=== PATIENT | female | born 1945 | race Caucasian/White ===

== ENCOUNTER 2019-07-13 21:26 | Emergency (ER) | payer OTHER ==
--- OUTSIDE RECORDS SUMMARY | 2019-07-13 21:29 | XMS REPORT ---
:1945 [facility] Organization [facility] Address [address] [place] [address] [address]. [address] [place] [address] Care Team Providers Name Role Phone JESSICA NELSON Unavailable Unavailable Problems This patient has no known problems. Allergies, Adverse Reactions, Alerts This patient has no known allergies or adverse reactions. Medications This patient has no known medications. Results Test Description Test Time Test Comments Text Results Atomic Results Result Comments BASIC METABOLIC PANEL 2019-06-03 06:34:00 Test Item Value Reference Range Comments SODIUM (BEAKER) (test 141 meq/L 136-145 kftr=273) POTASSIUM (BEAKER) (test 3.6 meq/L 3.5-5.1 gksl=362) CHLORIDE (BEAKER) (test 110 meq/L 98-107 vjqh=148) CO2 (BEAKER) (test vkfg=603) 26 meq/L 22-29 BLOOD UREA NITROGEN (BEAKER) 15 mg/dL 7-21 (test hjwy=224) CREATININE (BEAKER) (test 0.63 mg/dL 0.57-1.25 vdql=247) GLUCOSE RANDOM (BEAKER) 85 mg/dL 70-105 (test lduo=987) CALCIUM (BEAKER) (test 8.8 mg/dL 8.4-10.2 wsnm=038) EGFR (BEAKER) (test 93 mL/min/1.73 sq m ESTIMATED GFR IS NOT sgwy=3120) ACCURATE CREATININE CLEARANCE IN PREDICTING GLOMERULAR FILTRATION RATE. ESTIMATED GFR IS NOT APPLICABLE FOR DIALYSIS PATIENTS. CBC (HEMOGRAM ONLY)2019-06-03 06:10:00 Test Item Value Reference Range Comments WHITE BLOOD CELL COUNT (BEAKER) (test oujf=814) 4.2 K/ L 3.5-10.5 RED BLOOD CELL COUNT (BEAKER) (test oend=462) 3.81 M/ L 3.93-5.22 HEMOGLOBIN (BEAKER) (test urwv=036) 12.1 GM/DL 11.2-15.7 HEMATOCRIT (BEAKER) (test zlpd=081) 36.7 % 34.1-44.9 MEAN CORPUSCULAR VOLUME (BEAKER) (test bqxg=002) 96.3 fL 79.4-94.8 MEAN CORPUSCULAR HEMOGLOBIN (BEAKER) (test 31.8 pg 25.6-32.2 joap=107) MEAN CORPUSCULAR HEMOGLOBIN CONC (BEAKER) (test 33.0 GM/DL 32.2-35.5 kbpq=933) RED CELL DISTRIBUTION WIDTH (BEAKER) (test 12.8 % 11.7-14.4 mjwg=237) PLATELET COUNT (BEAKER) (test hafj=379) 204 K/CU MM 150-450 MEAN PLATELET VOLUME (BEAKER) (test cone=954) 10.4 fL 9.4-12.3 NUCLEATED RED BLOOD CELLS (BEAKER) (test 0 /100 WBC 0-0 gkll=881) [id number] 09:49:00 Test Item Value Reference Range Comments ACTIVATED CLOTTING TIME 346 sec Reference Range: 74-137 (BEAKER) (test pnmg=159) seconds, Baseline/TESTED AT [address] [address] [id number] 09:37:00 Test Item Value Reference Range Comments ACTIVATED CLOTTING TIME 197 sec Reference Range: 74-137 (BEAKER) (test kaae=029) seconds, Baseline/TESTED AT [address] [address] BASIC METABOLIC [id number] 07:54:00 Test Item Value Reference Range Comments SODIUM (BEAKER) (test 141 meq/L 136-145 ewuk=039) POTASSIUM (BEAKER) (test 3.9 meq/L 3.5-5.1 Specimen slightly cizc=756) hemolyzed CHLORIDE (BEAKER) (test 106 meq/L 98-107 yqcf=536) CO2 (BEAKER) (test 27 meq/L 22-29 drdm=551) BLOOD UREA NITROGEN 12 mg/dL 7-21 (BEAKER) (test kczd=104) CREATININE (BEAKER) (test 0.76 mg/dL 0.57-1.25 Specimen slightly hfxz=562) hemolyzed GLUCOSE RANDOM (BEAKER) 80 mg/dL 70-105 (test lpdy=981) CALCIUM (BEAKER) (test 9.5 mg/dL 8.4-10.2 ifxh=669) EGFR (BEAKER) (test 75 mL/min/1.73 sq m ESTIMATED GFR IS NOT xqka=8343) ACCURATE CREATININE CLEARANCE IN PREDICTING GLOMERULAR FILTRATION RATE. ESTIMATED GFR IS NOT APPLICABLE FOR DIALYSIS PATIENTS. CBC (HEMOGRAM ONLY)2019-06-02 07:36:00 Test Item Value Reference Range Comments WHITE BLOOD CELL COUNT (BEAKER) (test ptnu=804) 4.2 K/ L 3.5-10.5 RED BLOOD CELL COUNT (BEAKER) (test ifyu=205) 3.92 M/ L 3.93-5.22 HEMOGLOBIN (BEAKER) (test nqza=029) 12.9 GM/DL 11.2-15.7 HEMATOCRIT (BEAKER) (test umom=199) 37.5 % 34.1-44.9 MEAN CORPUSCULAR VOLUME (BEAKER) (test gqqf=420) 95.7 fL 79.4-94.8 MEAN CORPUSCULAR HEMOGLOBIN (BEAKER) (test 32.9 pg 25.6-32.2 larl=413) MEAN CORPUSCULAR HEMOGLOBIN CONC (BEAKER) (test 34.4 GM/DL 32.2-35.5 rebi=508) RED CELL DISTRIBUTION WIDTH (BEAKER) (test 12.8 % 11.7-14.4 jwdn=368) PLATELET COUNT (BEAKER) (test yxwx=103) 219 K/CU MM 150-450 MEAN PLATELET VOLUME (BEAKER) (test hrkm=150) 10.3 fL 9.4-12.3 NUCLEATED RED BLOOD CELLS (BEAKER) (test 0 /100 WBC 0-0 cyzq=975)
[2019-07-13] MEDS ORDERED: ACETAMINOPHEN 500 MG TAB ONE (22:40)
--- NOTE | 2019-07-14 00:21 | ER ---
Nurse's Notes [facility] Name: Tiff Elias Age: 73 yrs Sex: Female : 1945 Arrival Date: 07/13/2019 Time: 21:32 Bed 19 Private MD: Diagnosis: Contusion of unspecified part of head Presentation: 07/13 21:42 Presenting complaint: Patient states: Tripped outside and hit face, abrasion noted to tl2 bridge of nose and swelling to bottom lip. Pt recently had stent placement procedure on 06-02-19 and was prescribed multiple blood thinners. Bleeding controlled at this time. Pt denies LOC. Care prior to arrival: None. Mechanism of Injury: Fall from standing position. Trauma event details: Injury occurred in the [facility]. 21:42 Acuity: UGO 3 tl2 21:42 Method Of Arrival: Wheelchair tl2 21:44 Transition of care: patient was not received from another setting of care. Onset of tl2 symptoms was July 13, 2019 at 21:20. Risk Assessment: Do you want to hurt yourself or someone else? Patient reports no desire to harm self or others. Initial Sepsis Screen: Does the patient meet any 2 criteria? No. Patient's initial sepsis screen is negative. Does the patient have a suspected source of infection? No. Patient's initial sepsis screen is negative. Trauma Activation: Alert Physician: ED Physician; Name: tono; Notified At: 21:42; Arrived At: 21:42 Physician: General Surgeon; Name: ; Notified At: 21:42; Arrived At: Physician: Radiology; Name: ; Notified At: 21:42; Arrived At: 21:42 Physician: Respiratory; Name: ; Notified At: 21:42; Arrived At: Physician: Lab; Name: ; Notified At: 21:42; Arrived At: Historical: - Allergies: 21:47 No Known Allergies; tl2 - Home Meds: 21:47 amlodipine 10 mg tab 1 tab once daily [Active]; hydrochlorothiazide 12.5 mg Oral cap 1 tl2 cap once daily [Active]; levothyroxine 75 mcg tab 1 tab once daily [Active]; aspirin 81 mg Oral chew once daily [Active]; irbesartan 150 mg oral tab 1 tab twice daily [Active]; prasugrel oral 10 mg oral 1 tab once daily [Active]; atorvastatin 40 mg oral tab 1 tab once daily [Active]; lamotrigine 200 mg oral tab 1 tab 2 times per day [Active]; - PMHx: 21:47 Arthritis; Hypertension; Hypothyroidism; TIA; tl2 - PSHx: 21:47 stent placement 06-02-19; tl2 - Immunization history: Last tetanus immunization: - up to date. - Social history:: Smoking status: Patient/guardian denies using tobacco. - Ebola Screening: : No symptoms or risks identified at this time. Screenin:49 Abuse screen: Denies threats or abuse. Nutritional screening: No deficits noted. tl2 Tuberculosis screening: No symptoms or risk factors identified. Fall Risk Fall in past 12 months (25 points). Primary Survey: 21:47 NO uncontrolled hemorrhage observed. A: The patient is alert. Airway: patent, No cc3 supplemental oxygen in use on arrival. Oral cavity: clear, gag reflex present, Trachea midline. Breathing/Chest: Respiratory pattern: regular, Respiratory effort: spontaneous, unlabored, Breath sounds: clear, bilaterally. Chest inspection: symmetrical rise and fall of the chest. Circulation: Heart tones present. Skin color: pink, Skin temperature: warm, dry. Disability Alert. Exposure/Environment: All clothing and personal items were removed. Forensic evidence collection is not deemed to be indicated at this time. Items placed in patient belonging bag. There is no evidence of uncontrolled external bleeding. Obvious injury(ies) are noted at this time: abrasion to nasal bridge A warming method has been applied: A warm blanket has been provided to the patient. 21:50 Reassessment Airway Airway Patent Breathing/Chest Respiratory pattern Regular cc3 Respiratory effort Spontaneous Unlabored Breath sounds Clear Chest inspection Symmetrical Circulation Heart tones Present Color [place] Temperature Warm Dry Disability Alert. Secondary Survey: 21:47 HEENT: Head No injury/deformity Face Other abrasion to nasal bridge and chin, swollen cc3 lips Eyes: No injury or deformity noted. to bilateral eyes. Ears: clear bilaterally. Nose: clear to bilateral nares. abrasion to nasal bridge. Throat: is clear with gag reflex present. Gastrointestinal: Abdomen is soft, non-distended, Bowel sounds present in all quadrants. Palpation No deficit noted. : No signs and/or symptoms were reported regarding the genitourinary system. Musculoskeletal: Circulation, motion, and sensation intact. Range of motion: intact in all extremities. Injury Description: Abrasion sustained to chin and nose. Assessment: 21:42 General: Appears in no apparent distress. comfortable, Behavior is calm, cooperative, tl2 appropriate for age. Pain: Complains of pain in nose. 21:47 General: Appears in no apparent distress. comfortable, Behavior is calm, cooperative, cc3 appropriate for age. Pain: Complains of pain in chin and nose. Neuro: Level of Consciousness is awake, alert, obeys commands, Oriented to person, place, time, situation, Appropriate for age Science Liaison are equal bilaterally Moves all extremities. Full function Gait is steady, Speech is normal, Facial symmetry appears normal, Pupils are PERRLA, Intact. Cardiovascular: Denies chest pain, Heart tones S1 S2 present Capillary refill < 3 seconds in bilateral fingers Patient's skin is warm and dry. Respiratory: Airway is patent Respiratory effort is even, unlabored, Respiratory pattern is regular, symmetrical, Breath sounds are clear bilaterally. GI: Abdomen is flat, Bowel sounds present X 4 quads. Abd is soft and non tender X 4 quads. : No signs and/or symptoms were reported regarding the genitourinary system. EENT: Ear canal clear on bilaterally Pinna with no deformity noted on bilaterally Sclera/Cornea are clear in bilaterally Nares are clear bilaterally Oral mucosa is moist. Throat with gag reflex present, abrasions to nasal bridge, chin and swollen lips. Derm: Skin is intact, is fragile, is thin, Bruising that is bright red, dark purple, on bilateral forearms - patient said not because of trauma that happened but because she's on blood thinners. Musculoskeletal: Circulation, motion, and sensation intact. Range of motion: intact in all extremities. Injury Description: Abrasion sustained to chin and nasal bridge. 22:25 Reassessment: Patient appears in no apparent distress at this time. Patient and/or cc3 family updated on plan of care and expected duration. Pain level reassessed. Patient is alert, oriented x 3, equal unlabored respirations, skin warm/dry/pink. wound cleaning done. 23:34 Reassessment: Patient appears in no apparent distress at this time. Patient and/or cc3 family updated on plan of care and expected duration. Pain level reassessed. Patient is alert, oriented x 3, equal unlabored respirations, skin warm/dry/pink. 07/14 00:30 Reassessment: Patient appears in no apparent distress at this time. Patient and/or cc3 family updated on plan of care and expected duration. Pain level reassessed. Patient is alert, oriented x 3, equal unlabored respirations, skin warm/dry/pink. Dr. Walton discharged the patient home with prescription given. No IV cannula in situ. Patient left ER vitally stable and ambulatory with her daughter. No valuables left in the patient's room. Patient denies pain at this time. Patient states feeling better. Patient states symptoms have improved. Vital Signs: 07/13 21:47 BP 133 / 70; Pulse 71; Resp 18; Temp 97.7(O); Pulse Ox 99% on R/A; Weight 74.84 kg; tl2 Height 5 ft. 1 in. (154.94 cm); Pain 4/10; 22:30 BP 127 / 66; Pulse 67; Resp 17 S; Pulse Ox 97% on R/A; cc3 23:34 BP 113 / 62; Pulse 65; Resp 16 S; Pulse Ox 100% on R/A; cc3 07/14 00:18 BP 119 / 61; Pulse 68; Resp 15 S; Pulse Ox 97% on R/A; Pain 0/10; cc3 07/13 21:47 Body Mass Index 31.18 (74.84 kg, 154.94 cm) tl2 Gaetano Coma Score: 07/13 21:47 Eye Response: spontaneous(4). Verbal Response: oriented(5). Motor Response: obeys cc3 commands(6). Total: 15. Trauma Score (Adult): 21:47 Eye Response: spontaneous(1); Verbal Response: oriented(1); Motor Response: obeys cc3 commands(2); Systolic BP: > 89 mm Hg(4); Respiratory Rate: 10 to 29 per min(4); Gaetano Score: 15; Trauma Score: 12 ED Course: 21:32 Patient arrived in ED. cf2 21:42 Kunal Walton MD is Attending Physician. tw4 21:43 Triage completed. tl2 21:47 Robyn Alba is Primary Nurse. cc3 21:47 Arm band placed on right wrist. tl2 21:47 Patient maintains SpO2 saturation greater than 95% on room air. Thermoregulation: warm cc3 blanket given to patient. 21:49 Patient has correct armband on for positive identification. Bed in low position. Call tl2 light in reach. Side rails up X2. Adult w/ patient. 22:24 CT Head C Spine In Process Unspecified. EDMS 22:25 CT Facial Bones W/O Con In Process Unspecified. EDMS 07/14 00:30 No provider procedures requiring assistance completed. Patient did not have IV access cc3 during this emergency room visit. Administered Medications: 07/13 22:43 Drug: Tylenol 1000 mg Route: PO; cc3 07/14 00:30 Follow up: Response: No adverse reaction; Pain is decreased cc3 Intake: 00:30 PO: 100ml; Total: 100ml. cc3 00:30 voided 3x cc3 Outcome: 00:20 Discharge ordered by . tw4 00:30 Discharged to home ambulatory, with family. cc3 00:30 Condition: stable 00:30 Discharge instructions given to patient, family, Instructed on discharge instructions, follow up and referral plans. medication usage, Demonstrated understanding of instructions, follow-up care, medications, Prescriptions given X 1. 00:30 Patient's length of stay in the Emergency Department was greater than 2 hours. waited cc3 for diagnostic exam resultsPatient's length of stay extended due to 00:36 Patient left the ED. cc3 Signatures: Dispatcher [facility] Fifi Reinoso RN RN tl2 Kunal Walton MD MD tw4 Robyn Alba cc3 Daniela Salgado cf2 Corrections: (The following items were deleted from the chart) 00:54 07/13 22:25 Reassessment: Patient appears in no apparent distress at this time. Patient cc3 and/or family updated on plan of care and expected duration. Pain level reassessed. Patient is alert, oriented x 3, equal unlabored respirations, skin warm/dry/pink. cc3
--- NOTE | 2019-07-14 00:22 | EDPHYS ---
Physician Documentation [facility] Name: Tiff Elias Age: 73 yrs Sex: Female : 1945 Arrival Date: 07/13/2019 Time: 21:32 Bed 19 Private MD: ED Physician Kunal Walton HPI: 07/13 22:37 This 73 yrs old Female presents to ER via Wheelchair with complaints of Fall tw4 Injury. 22:37 Details of fall: The patient fell from an upright position, while standing. Onset: The tw4 symptoms/episode began/occurred today. Associated injuries: The patient sustained no obvious injury. Severity of symptoms: At their worst the symptoms were moderate, in the emergency department the symptoms are unchanged. The patient has not experienced similar symptoms in the past. Historical: - Allergies: 21:47 No Known Allergies; tl2 - Home Meds: 21:47 amlodipine 10 mg tab 1 tab once daily [Active]; hydrochlorothiazide 12.5 mg Oral cap 1 tl2 cap once daily [Active]; levothyroxine 75 mcg tab 1 tab once daily [Active]; aspirin 81 mg Oral chew once daily [Active]; irbesartan 150 mg oral tab 1 tab twice daily [Active]; prasugrel oral 10 mg oral 1 tab once daily [Active]; atorvastatin 40 mg oral tab 1 tab once daily [Active]; lamotrigine 200 mg oral tab 1 tab 2 times per day [Active]; - PMHx: 21:47 Arthritis; Hypertension; Hypothyroidism; TIA; tl2 - PSHx: 21:47 stent placement 06-02-19; tl2 - Immunization history: Last tetanus immunization: - up to date. - Social history:: Smoking status: Patient/guardian denies using tobacco. - Ebola Screening: : No symptoms or risks identified at this time. ROS: 22:37 Constitutional: Negative for fever, chills, and weight loss, Eyes: Negative for injury, tw4 pain, redness, and discharge, Cardiovascular: Negative for chest pain, palpitations, and edema, Respiratory: Negative for shortness of breath, cough, wheezing, and pleuritic chest pain, Abdomen/GI: Negative for abdominal pain, nausea, vomiting, diarrhea, and constipation, Back: Negative for injury and pain, MS/Extremity: Negative for injury and deformity, Skin: Negative for injury, rash, and discoloration, Neuro: Negative for headache, weakness, numbness, tingling, and seizure. Exam: 22:37 Constitutional: This is a well developed, well nourished patient who is awake, alert, tw4 and in no acute distress. Chest/axilla: Normal chest wall appearance and motion. Nontender with no deformity. No lesions are appreciated. Cardiovascular: Regular rate and rhythm with a normal S1 and S2. No gallops, murmurs, or rubs. Normal PMI, no JVD. No pulse deficits. Respiratory: Lungs have equal breath sounds bilaterally, clear to auscultation and percussion. No rales, rhonchi or wheezes noted. No increased work of breathing, no retractions or nasal flaring. Abdomen/GI: Soft, non-tender, with normal bowel sounds. No distension or tympany. No guarding or rebound. No evidence of tenderness throughout. Back: No spinal tenderness. No costovertebral tenderness. Full range of motion. MS/ Extremity: Pulses equal, no cyanosis. Neurovascular intact. Full, normal range of motion. Neuro: Awake and alert, GCS 15, oriented to person, place, time, and situation. Cranial nerves II-XII grossly intact. Motor strength 5/5 in all extremities. Sensory grossly intact. Cerebellar exam normal. Normal gait. 22:37 Head/face: Noted is contusion, that is superficial, of the nose and chin, ecchymosis, that is mild, of the chin. Vital Signs: 21:47 BP 133 / 70; Pulse 71; Resp 18; Temp 97.7(O); Pulse Ox 99% on R/A; Weight 74.84 kg; tl2 Height 5 ft. 1 in. (154.94 cm); Pain 4/10; 22:30 BP 127 / 66; Pulse 67; Resp 17 S; Pulse Ox 97% on R/A; cc3 23:34 BP 113 / 62; Pulse 65; Resp 16 S; Pulse Ox 100% on R/A; cc3 07/14 00:18 BP 119 / 61; Pulse 68; Resp 15 S; Pulse Ox 97% on R/A; Pain 0/10; cc3 07/13 21:47 Body Mass Index 31.18 (74.84 kg, 154.94 cm) tl2 Gaetano Coma Score: 07/13 21:47 Eye Response: spontaneous(4). Verbal Response: oriented(5). Motor Response: obeys cc3 commands(6). Total: 15. Trauma Score (Adult): 21:47 Eye Response: spontaneous(1); Verbal Response: oriented(1); Motor Response: obeys cc3 commands(2); Systolic BP: > 89 mm Hg(4); Respiratory Rate: 10 to 29 per min(4); [place] Score: 15; Trauma Score: 12 MDM: 21:42 Patient medically screened. tw4 07/14 04:44 Differential diagnosis: abrasion, closed head injury, contusion, fracture, multiple tw4 trauma. Data reviewed: vital signs, nurses notes. Data reviewed: radiologic studies, CT scan. Data interpreted: Pulse oximetry: Interpretation: normal. Counseling: I had a detailed discussion with the patient and/or guardian regarding: the historical points, exam findings, and any diagnostic results supporting the discharge/admit diagnosis. Medication response: improved pain. Response to treatment: and as a result, I will discharge patient. Special discussion: I discussed with the patient/guardian in detail that at this point there is no indication for admission to the hospital. It is understood, however, that if the symptoms persist or worsen the patient needs to return immediately for re-evaluation. Special discussion: Based on the patient's history, exam and DX evaluation, there is no indication for emergent intervention or inpatient [place]. It is understood by the patient/guardian that if the SXs persist or worsen they need to return immediately for re-evaluation. 07/13 21:56 Order name: CT Head C Spine tw4 07/13 21:56 Order name: CT Facial Bones W/O Con tw4 Administered Medications: 07/13 22:43 Drug: Tylenol 1000 mg Route: PO; cc3 07/14 00:30 Follow up: Response: No adverse reaction; Pain is decreased cc3 Disposition: 07/14/19 00:20 Discharged to Home. Impression: Contusion of unspecified part of head. - Condition is Stable. - Discharge Instructions: Contusion, Facial or Scalp Contusion, Head Injury, Adult, [id number]. - Prescriptions for Tramadol 50 mg Oral Tablet - take 1 tablet by ORAL route every 8 hours as needed; 12 tablet. - Medication Reconciliation Form, Thank You Letter, Antibiotic Education, Prescription Opioid Use form. - Follow up: Private Physician; When: Upon discharge from the Emergency Department; Reason: If symptoms return, Recheck today's complaints, Continuance of care. - Problem is new. - Symptoms have improved. Signatures: Dispatcher [employer] EDMS Fifi Reinoso RN RN tl2 Kunal Walton MD MD tw4 Robyn Alba cc3 Corrections: (The following items were deleted from the chart) 00:36 00:20 07/14/2019 00:20 Discharged to Home. Impression: Contusion of unspecified part of cc3 head. Condition is Stable. Forms are Medication Reconciliation Form, Thank You Letter, Antibiotic Education, Prescription Opioid Use. Follow up: Private Physician; When: Upon discharge from the Emergency Department; Reason: If symptoms return, Recheck today's complaints, Continuance of care. Problem is new. Symptoms have improved. tw4
[2019-07-14 01:35] VITALS: TEMP 97.7
[2019-07-14 01:37] VITALS: BP 113/62; O2SAT 100
--- NOTE | 2019-07-14 10:42 | RAD REPORT ---
EXAM DESCRIPTION: CT - Facial Bones W/ Mpr - 07/14/2019 12:27 am CLINICAL HISTORY: 73-year-old female with pain. COMPARISON: None. TECHNIQUE: CT brain, maxillofacial and cervical spine without contrast. This exam was performed acco rding to our departmental dose optimization program which includes use of automated exposure control, adjustment of the mA and/or kV according to patient size and/or use of iterative reconstruction tech nique. FINDINGS: Mild foci of patchy hypoattenuation are present in a subcortical and periventricular deep white matter distribution, nonspecific; however, most likely represent small vessel ischemic disease, age indeterminate. The ventricles, sulci, and cisterns are symmetric and unremarkable. The mahoney-white matter different iation is preserved. There is no mass effect, midline shift, intra- or extra-axial fluid collection /acute hemorrhage. Maxillofacial: The frontal sinuses, frontal-ethmoid recesses, anterior/posterior ethmoids, sphenoid sinuses, and max illary sinuses are well developed and clear. The osteomeatal complexes are patent. The nasal turbinates and nasal septum are normal. The cribrif orm plate and lamina papyraceae within normal limits. The osseous structures are unremarkable. The orbits are unremarkable. The optic nerves and globes appear intact. The periorbital soft tissues show no evidence of inflammation. IMPRESSION: 1. CT maxillofacial within normal limits. 2. No acute intracranial abnormalities. Nonspecific, mild white matter change most likely small vesse l ischemic disease, age indeterminate. 3. CT is insensitive for early evaluation of acute stroke. If there is clinical concern for acute ischemia, an MRI may be considered. TECHNIQUE: Cervical spine CT was performed without contrast. Multiplanar reformatted images were pro vided. This exam was performed according to our departmental dose optimization program which includes use of automated exposure control, adjustment of the mA and/or kV according to patient size and/or u se of iterative reconstruction technique. COMPARISON: None. FINDINGS: Trace anterolisthesis of T1 relative to T2 suspected secondary to degenerative facet hanna e at that level. There is normal alignment of the cervical spine without fracture or subluxation. The facets are lindsay l in alignment bilaterally. The posterior elements including the spinous processes are intact. Straig htening of the cervical spine which may be secondary to positioning for the examination. Morphology and attenuation of the vertebral bodies and intervertebral disk spaces is compatible with multilevel degenerative change. Multilevel loss of intervertebral disk height. Multilevel posterior osseous spurring results in sever e neuroforaminal narrowing throughout the cervical spine. Severe multilevel degenerative facet change bilaterally. Additionally, posterior osseous spurring of C4-5, C5-6 and C6-7 vertebral levels resulting in at leas t moderate central spinal canal narrowing. The pre-and paravertebral soft tissues are within normal limits. IMPRESSION: 1. Straightening of the cervical spine which may be secondary to positioning for the exa mination versus spasm. 2. Moderate to severe degenerative change without fracture or acute subluxation. Electronically signed by: Darcy Tolentino MD 07/13/2019 11:07 PM NURSE'S ASSISTANT Due to temporary technical issues with the PACS/Fluency reporting system, reports are being signed by the in house radiologist as a courtesy to ensure prompt reporting. The interpreting radiologist is f ully responsible for the content of the report.
== END 2019-07-14 00:36 | disposition home or self-care (01) ==
LOC: ER 21:26
DX: S00.93XA Contusion of unspecified part of head, initial encounter (principal); I10 Essential (primary) hypertension; E03.9 Hypothyroidism, unspecified; W18.30XA Fall on same level, unspecified, initial encounter; Y93.9 Activity, unspecified; Y92.9 Unspecified place or not applicable; Z79.82 Long term (current) use of aspirin; Z95.818 Presence of other cardiac implants and grafts
CPT/HCPCS: 70450; 70486; 72125; 76377; 99284

== ENCOUNTER 2021-02-23 06:23 | Day surgery (SDC) | payer OTHER ==
[2021-02-23] MEDS ORDERED: Ringers Lactate 1,000 ML IV ONE (06:59)
[2021-02-23] MEDS ORDERED: LIDOCAINE 1% MPF 30 ML VIAL ONE (08:03)
[2021-02-23] MEDS ORDERED: propofoL 200 MG/20 ML VIAL IV ONE (08:03)
--- NOTE | 2021-02-23 08:15 | ENDO RPT ---
[address], [address] COLONOSCOPY PROCEDURE REPORT EXAM DATE: 02/23/2021 PATIENT NAME: Tiff Elias MR #: [id number] BIRTHDATE: 1945 ATTENDING: Bhargav Lucas DR STATUS: outpatient NYLON WINDER: Marion Alvarenga RN and Nicolasa Hawthorne INDICATIONS: The patient is a 75 yr old Female here for a colonoscopy due to colon cancer screening PROCEDURE PERFORMED: Colonoscopy with biopsy MEDICATIONS: Per Anesthesia. ESTIMATED BLOOD LOSS: None CONSENT: The patient understands the risks and benefits of the procedure and understands that these risks include, but are not limited to: sedation, allergic reaction, infection, perforation and/or bleeding. Alternative means of evaluation and treatment include, among others: physical exam, x-rays, and/or surgical intervention. The patient elects to proceed with this endoscopic procedure. DESCRIPTION OF PROCEDURE: During intra-op preparation period all mechanical medical equipment was checked for proper function. Hand hygiene and appropriate measures for infection prevention was taken. Procedure, possible complications, alternatives including, but not limited to possibility of bleeding, perforation, tear, infection, sepsis, need for surgery, need for blood transfusion, were explained to the patient. After the risks, benefits and alternatives of the procedure were thoroughly explained, Informed consent was verified, confirmed and timeout was successfully executed by the treatment team. The patient was placed in the left lateral position. A digital rectal exam was performed and revealed internal hemorrhoids and A digital rectal exam was performed and revealed external hemorrhoids. After appropriate level of anesthesia, the scope was passed. The EC-[id number] ([id number]) endoscope was introduced through the anus and advanced to the cecum, which was identified by the ileocecal valve. The quality of the prep was fair. The instrument was then slowly withdrawn as the colon was fully examined. Scope withdrawal time was 10 minutes. COLON FINDINGS: There was moderate diverticulosis noted in the sigmoid colon with associated tortuosity. No bleeding was noted from the diverticulosis. Moderate sized internal and external hemorrhoids were found. Retroflexed views revealed no abnormalities. The scope was then completely withdrawn from the patient and the procedure terminated. ADVERSE EVENTS: There were no complications. IMPRESSIONS: 1. There was moderate diverticulosis noted in the sigmoid colon 2. Moderate sized internal and external hemorrhoids RECOMMENDATIONS: 1. avoid NSAIDS for 2 weeks 2. await biopsy results 3. follow-up: office 2 week(s) 4. Monitor for any evidence of rectal bleeding. 5. yearly hemoquant 6. hemorrhoidal hygiene 7. increase dietary water 8. low fiber / diverticular diet RECALL: Return in 5 year(s) for Colonoscopy, pending biopsy results. Bhargav Lucas DR eSigned: Bhargav Lucas DR 02/23/2021 8:15 AM cc: CPT CODES: ICD9 CODES: PATIENT NAME: Tiff Elias MR#: [id number]
[2021-02-23 09:09] VITALS: BP 121/56; TEMP 98; O2SAT 99
== END 2021-02-23 08:50 | disposition home or self-care (01) ==
LOC: OR 06:23
PROVIDERS: ATTEND Surgery
PROC: 0DBC8ZX Excision of Ileocecal Valve, Via Natural or Artificial Opening Endoscopic, Diagnostic (ICD-10-PCS; 2021-02-23)
PROC: 0DBC8ZX Excision of Ileocecal Valve, Via Natural or Artificial Opening Endoscopic, Diagnostic (ICD-10-PCS; principal; 2021-02-23 08:00)
DX: Z12.11 Encounter for screening for malignant neoplasm of colon (principal); K57.30 Diverticulosis of large intestine without perforation or abscess without bleeding; K64.8 Other hemorrhoids; K64.4 Residual hemorrhoidal skin tags
CPT/HCPCS: 45380; 88305; J2704; J7120